=== PATIENT | female | born 1955 | race Caucasian/White ===

== ENCOUNTER 2021-04-21 08:51 | Day surgery (SDC) | payer MEDICARE, BC ==
[~2021-04-21] VITALS: Ht 165.1 cm; Wt 96.8 kg
[~2021-04-21 08:51] MED LIST: ACYC400 PO; CALCIUM-MAGNES1 EAC9 PO; CIDAFLEX TABLE1 EAC1 PO; FISH OIL 1,2001 EAC1 PO; FLAXSEED OIL1000 M1 PO; HYDCHL12.5 PO; LEVSOD25 PO; LOSA50 PO; MULTIPLE VITAM1 EACH PO; TURMERIC ROOT5000 GM; VITAMIN D325 MC3 PO
--- NOTE | 2021-04-21 11:11 | NUR ---
04/21/21 1111 Mandi Mcbride SIMJOSEE USED DURING PROCEDURE.
== END 2021-04-21 12:00 | disposition home or self-care (01) ==
LOC: ORSCSDS 08:51
PROVIDERS: Student in an Organized Health Care Education/Training Program
PROC: 0DBN8ZX Excision of Sigmoid Colon, Via Natural or Artificial Opening Endoscopic, Diagnostic (ICD-10-PCS; principal; 2021-04-21 10:00)
DX: Z12.11 Encounter for screening for malignant neoplasm of colon (principal); D12.5 Benign neoplasm of sigmoid colon; K57.30 Diverticulosis of large intestine without perforation or abscess without bleeding; I10 Essential (primary) hypertension; K21.9 Gastro-esophageal reflux disease without esophagitis; E03.9 Hypothyroidism, unspecified; Z79.899 Other long term (current) drug therapy
CPT/HCPCS: 88305; J2704; J7120